=== PATIENT | female | born 2000 | race Caucasian/White ===

== ENCOUNTER 2020-02-04 11:02 | Emergency (ER) | payer OTHER ==
[~2020-02-04] VITALS: Ht 152.4 cm; Wt 50.8 kg
[~2020-02-04 11:02] MED LIST: CLONAZEPAM0.5 MG PO; VYVANSE30 MG; Z.0.PROTONIX20 MG PO
--- NOTE | 2020-02-04 11:16 | Emergency Department Note ---
History of Present Illnes History of Present Illness Chief Complaint: vomiting History of Present Illness This is a 19 year old female, with a history of GERD, who presents with the onset of nausea and vomiting that started last night. Patient estimates that she vomited approximate 6 times. She states that she ate fettuccine Anthony yesterday, and vomited that up, as well as "something red that looked like strawberries." She cannot recall eating anything that was red yesterday. Patient denies any abdominal pain or diarrhea. She had a normal bowel movement yesterday. She denies any dysuria, frequency, or urgency. Patient states that typically with her GERD, she would vomit once and her symptoms would resolve. She has been out of Protonix for about a year, because she changed doctors. She denies any melena or hematochezia. 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 ................................................................................ ................................................ ................................................................................ .......................) Relieving factors: none Exacerbating factors: none Associated symptoms: Reports denies other symptoms, Reports nausea/vomiting; Denies chest pain, Denies fever/chills, Denies shortness of breath Treatments prior to arrival: none Risk factors: history of GERD Past Medical/Family History Physician Review I have reviewed the patient's past medical and family history. Any updates have been documented here. Past Medical History Recent Fever: No Clinical Suspicion of Infectio: No New/Unexplained Change in Ment: No Past Medical History: Kidney Stones, Anemia, GERD Other Medical History: ADD Past Surgical History: Appendectomy Social History Smoking Cessation: Never Smoker Alcohol Use: None Any Illegal Drug Use: No TB Exposure/Symptoms: No Physically hurt or threatened: No Family History Family history of heart diseas: No Other Last Tetanus: UTD Any Pre-Existing Lines (PICC,: No Is patient up to date on immun: No Review of Systems Review of Systems Constitutional: Reports no symptoms; Denies chills, Denies fever EENTM: Reports no symptoms Cardiovascular: Reports no symptoms; Denies chest pain, Denies palpitations Respiratory: Denies cough, Denies pain on inspiration, Denies pain with cough, Denies dyspnea Gastrointestinal: Reports nausea, Reports vomiting; Denies abdominal pain, Denies diarrhea Genitourinary: Denies dysuria, Denies frequency Musculoskeletal: Reports no symptoms Integumentary: Reports no symptoms Neurological: Reports no symptoms Psychological: Reports no symptoms Review of other systems: All other systems negative Physical Exam Related Data Allergies: Coded Allergies: No Known Drug Allergies (Verified Allergy, Mild, 03/21/12) Physical Exam CONSTITUTIONAL HENT EYES NECK PULMONARY CARDIOVASCULAR GASTROINTESTINAL GENITOURINARY SKIN MUSCULOSKELETAL NEUROLOGICAL PSYCHOLOGICAL Results Laboratory Laboratory CBC - deniesnormal; CMP - normal UA - (on menses) - karis- small, ket - 80 mg/dl, blo - large, pro = 30 mg/dl; UPT - negative; Lab results reviewed: Yes Assessment & Plan Medical Decision Making MDM - Encourage plenty of fluid intake for the next couple of days, drinking small amounts frequently of Gatorade, water, Pedialyte. A bland diet is also recommended, avoiding any fried, fatty, fast, or spicy foods. - Follow-up with your primary care physician, if your symptoms persist. He may return to emergency room if they worsen. - Recommend that you take the Protonix once daily for at least the next 10-14 days, to prevent recurrence of symptoms. Assessment & Plan Final Impression: (1) Nausea and vomiting (2) Gastritis Depart Disposition: HOME, SELF-half-way Meds Active Scripts Pantoprazole Sodium (PROTONIX) 20 Mg Tablet.dr, 40 MG PO DAILY PRN for GERD and gastritis, #30 TAB 0 Refills Prov:BELLE STANLEY MD 02/04/20 Ondansetron (ONDANSETRON ODT) 8 Mg Tab.rapdis, 4 MG PO Q6H for nausea and vomiting, #20 TAB 0 Refills Prov:BELLE STANLEY MD 02/04/20 Reported Medications Clonazepam (CLONAZEPAM) 0.5 Mg Tablet, 0.5 MG PO, TAB 08/11/19 Lisdexamfetamine Dimesylate (VYVANSE) 30 Mg Capsule, DAILY 08/11/19 Pantoprazole Sodium (Protonix) 20 Mg Tablet.dr, 20 MG PO DAILY 03/21/12 BELLE STANLEY MD Feb 04, 2020 11:16
[2020-02-04] MEDS ORDERED: ONDANSETRON HCL INJ 2MG/ML 2ML 2 MG/ML VIAL IV STA (11:50)
[2020-02-04] MEDS ORDERED: FAMOTIDINE 20 MG/2 ML VIAL IV STA (11:50)
[2020-02-04] MEDS ORDERED: SODIUM CHLORIDE 0.9% 1000ML 1,000 ML IV SCH (12:00)
[2020-02-04] MEDS ORDERED: ONDANSETRON ODT8 MG PO (12:52)
[2020-02-04] MEDS ORDERED: PROTONIX20 MG PO (12:54)
== END 2020-02-04 13:14 | disposition home or self-care (01) ==
LOC: FSED 11:33
DX: R11.2 Nausea with vomiting, unspecified (principal); K29.70 Gastritis, unspecified, without bleeding; F98.8 Other specified behavioral and emotional disorders with onset usually occurring in childhood and adolescence; Z86.2 Personal history of diseases of the blood and blood-forming organs and certain disorders involving the immune mechanism
CPT/HCPCS: 80053; 81003; 81025; 85025; 96374; 96376; 99283; J2405; J7030